=== PATIENT | male | born 1945 | race African-American/Black ===

== ENCOUNTER 2018-01-02 22:42 | Emergency (ER) | payer OTHER ==
[~2018-01-02] VITALS: Ht 177.8 cm; Wt 97.5 kg
[2018-01-02] MEDS ORDERED: LIPITOR10 MG PO (22:48)
[2018-01-02] MEDS ORDERED: GLIPIZIDE 10 MG10 MG PO (22:48)
[2018-01-02] MEDS ORDERED: JANUMET 50-1,01 EACH PO (22:48)
[2018-01-02] MEDS ORDERED: COZAAR 25 MG TA25 M1 PO (22:48)
[2018-01-03] MEDS ORDERED: TRAMADOL 50 MG50 MG PO (00:29)
[2018-01-03 00:37] VITALS: BP 127/71
== END 2018-01-03 00:43 | disposition home or self-care (01) ==
LOC: ER 22:42
DX: S20.212A Contusion of left front wall of thorax, initial encounter (principal); E11.9 Type 2 diabetes mellitus without complications; W01.0XXA Fall on same level from slipping, tripping and stumbling without subsequent striking against object, initial encounter; Y93.89 Activity, other specified; Y92.89 Other specified places as the place of occurrence of the external cause; Y99.8 Other external cause status